=== PATIENT | male | born 1955 | race Caucasian/White ===

== ENCOUNTER 2024-03-31 16:05 | Inpatient (IN) ==
--- NOTE | 2024-03-31 16:38 | Emergency Department Note ---
Impression & Plan Anemia, Black stool, Right leg swelling ED Provider Note NAME: GUERO RAVI AGE: 68 SEX: M : 1955 ARRIVES VIA: Walk-In INFORMANT: [Patient][family] ED PROVIDER(S): [Yoel Wang MD] CHIEF COMPLAINT: GI bleed HISTORY OF PRESENT ILLNESS: The patient is a 68-year-old male who presents with advice from his doctor's office for a blood transfusion. The patient has had about a week and a half of an upset stomach and occasional dizziness. His lower right leg has swollen. He had some outpatient lab work done that showed a hemoglobin of 6.3. He was referred for a transfusion. There has been no fever, no cough or congestion. No chest pain or shortness of breath. The patient states that today, his stools were black in color. Of note, he has been taking iron the last few days. No history of previous GI bleeding or blood transfusion. PMHx/PSHx/Social Hx: See Below PHYSICAL EXAM: GENERAL: Patient is in no acute distress. HEENT: No acute trauma, normocephalic atraumatic, mucous membranes moist, no nasal congestion. NECK: No stridor, no adenopathy, no meningismus, trachea is midline. LUNGS: Clear to auscultation bilaterally, no wheeze, no rhonchi, breath sounds equal. HEART: 3/6 systolic murmur heard best at the left sternal border. Regular rate and rhythm. ABDOMEN: Soft, nontender, no peritonitis. EXTREMITIES: No cyanosis, full range of motion of all the joints without pain or difficulty. The patient does have some edema of the right lower extremity when compared to the left. There is some erythema with some subtle warmth of the distal left leg from the ankle to just below the knee. NEUROLOGIC: Oriented x 3, no acute motor or sensory deficits, no focal weakness. SKIN: No jaundice, no diaphoresis. Pale. Rectal: Black stool, very trace heme positivity. DIFFERENTIAL DIAGNOSIS: GI bleeding, marrow suppression, bacteremia, cellulitis, DVT, among others. EMERGENCY DEPARTMENT PROCEDURES: MEDICAL DECISION MAKING: There is no leukocytosis. The patient was anemic with a hemoglobin of 6.4. I did perform a rectal exam. The stool was black and very trace heme positive. There was a normal platelet count. No coagulopathy. No renal failure or significant electrolyte abnormality. No concerning liver enzyme elevation. The patient appeared to be in a euthyroid state. ECG showed a normal sinus rhythm, no acute ST elevation. Cardiac enzyme testing x 1 was not consistent with acute cardiac injury. Chest x-ray did not show pneumonia or CHF. On exam, the patient was quite pale. He did have right leg swelling. Rectal exam was trace heme positive but the stool was black. An ultrasound of the right lower extremity was done, no DVT, a hematoma/Fonseca's cyst was suggested. I did have a discussion with the patient. He does meet criteria for admission. Further workup for his anemia is warranted. The patient was ordered for blood for transfusion. 1 unit was ordered to be transfused here in the ED. The appropriate paperwork was completed and signed. I did speak with case management, the on-call hospitalist was consulted. Of note, the patient was given a dose of IV Protonix, 80 mg. This was given for the possibility of upper GI bleeding. Prior/Outside records/notes reviewed: None ECG per my interpretation: Indication was potential GI bleeding. The ECG shows a normal sinus rhythm with a rate of 61. There is no ST elevation, no PVCs. The QTc is 428. Continuous Cardiac Monitoring per my interpretation: An order was placed for continuous cardiac monitoring. The monitor shows a rate of 74 with normal sinus rhythm. Imaging/x-ray results per my interpretation: Chest x-ray does not show pneumonia or free air. There was no heart failure. Chronic Medical/Social conditions affecting care: None Care/Management discussed with: Case management, the on-call hospitalist. Level of care consideration(s): After review of the information above and other included data: --I believe the patient requires escalation of care to admission Critical Care Note: I have personally spent 45 minutes of critical care time in the direct management of this patient. This includes bedside care, interpretation of diagnostic studies, and testing, discussion with consultants, patient, and family members, and other required patient management activities. This 45 minutes is in excess of all separately billable procedures. 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 Beliefs That Will Affect Care: Shinto Shinto Beliefs: Amidh Current Living Situation: Spouse and Family Other Information That Helps Us Care for You: No Feels Safe at Home: Yes Assistive Devices: None Allergies Allergies Allergy/AdvReac Type Severity Reaction Status Date / Time No Known Allergies Allergy Unverified 03/31/24 18:35 Home Meds Home Medications Medication Instructions Recorded Confirmed iron 1 tab PO DIRECTED 03/31/24 03/31/24 Results & Data (ED) Vital Signs Vital Signs - 24 hr 03/31/24 16:07 03/31/24 16:41 Temperature 36.5 C Temperature Source Temporal Artery Scan Pulse Rate 74 63 Respiratory Rate 20 Respiratory Effort / Characteristics Non-Labored Spontaneous Respiratory Depth Normal Blood Pressure 125/60 Blood Pressure Mean 81 Pulse Oximetry 98 Oxygen Delivery Method Room Air Sepsis Recent Fever Within 48 Hours No Sepsis New/Unexplained Change in Mental Status No Sepsis Action Taken by Nursing No Action Required Home Medications Current Medication List: was personally reviewed by me Laboratory Data Attestation: I reviewed the patient's lab results. 03/31/24 18:37 03/31/24 16:32 Lab Results 03/31/24 03/31/24 Range/Units 16:32 17:03 WBC 7.76 (4.8-10.8) K/ul RBC 3.55 L (4.70-6.10) M/uL Hgb 6.4 L* (14.0-18.0) g/dl Hct 22.8 L (42.0-52.0) % MCV 64.2 L (80.0-100.0) fL MCH 18.0 L (25.0-34.0) pg MCHC 28.1 L (32.0-36.0) g/dL RDW Std Deviation 45.7 (36.4-46.3) fL RDW Coeff of Floresita 20.4 H (11.5-14.5) % Plt Count 312 (130-400) K/uL MPV 9.2 L (9.4-12.4) fL Immature Gran % (Auto) 0.4 % Neut % (Auto) 56.0 % Lymph % (Auto) 26.5 % Hardy % (Auto) 10.8 % Eos % (Auto) 5.4 % Baso % (Auto) 0.9 % Neut # (Auto) 4.34 (1.40-6.50) K/uL Lymph # (Auto) 2.06 (1.20-3.40) K/uL Hardy # (Auto) 0.84 H (0.11-0.59) K/uL Eos # (Auto) 0.42 (0.00-0.50) K/uL Baso # (Auto) 0.07 (0.00-0.20) K/uL Immature Gran # (Auto) 0.03 (0.01-0.20) K/uL Polychromasia 1+ Anisocytosis Present Tear Drop Cells 1+ PT 10.6 (9.0-12.0) Seconds INR 1.0 (0.9-1.1) APTT 22 (21-31) Seconds PTT Ratio 0.8 Sodium 138 (136-145) mmol/L Potassium 4.1 (3.5-5.1) mmol/L Chloride 105 (98-107) mmol/L Carbon Dioxide 26 (21-32) mmol/L Anion Gap 7 (3-11) BUN 18 (6-23) mg/dl Creatinine 0.88 (0.6-1.4) mg/dl Est Cr Clr Drug Dosing Not Reportable eGFR 93.08 BUN/Creatinine Ratio 20.5 H (10-20) Glucose 93 (70-99(Fasting)) mg/dl Lactate 1.2 (0.4-2.0) mmol/L Calcium 8.8 (8.6-10.3) mg/dl Magnesium 2.1 (1.7-2.4) mg/dl Iron 15 L (35-175) mcg/dl TIBC 435 (250-450) mcg/dl Unsaturated IBC 420 H (155-355) mcg/dl Transferrin % Sat 3 L (20-50) % Ferritin 39.6 (8-388) ng/ml Total Bilirubin 0.3 (0.2-1.0) mg/dl AST 21 (13-39) U/L ALT 15 (7-52) U/L Alkaline Phosphatase 74 (34-104) U/L Troponin I High Sens 12.2 (0-20) pg/ml Total Protein 7.4 (6.0-8.3) gm/dl Albumin 4.1 (3.4-5.0) gm/dl Globulin 3.3 (2.5-4.0) gm/dl Albumin/Globulin Ratio 1.2 (0.9-2) Vitamin B12 616 (180-914) pg/ml Folate 17.09 (>5.38) ng/ml TSH 2.116 (0.300-4.500) uIu/ml Blood Type A Positive Blood Type Recheck A Positive Antibody Screen NEGATIVE Crossmatch See Detail Administered Medications Pantoprazole Sodium (Protonix) 40 mg in 10 mls @ 5 mls/min IV BID AYAZ Stop: 04/30/24 20:59 Last Admin: 03/31/24 20:58 Dose: 5 mls/min Documented By: AMP Discontinued Medications Pantoprazole Sodium 80 mg/ (Dextrose) 120 mls @ 400 mls/hr IV NOW ONE Stop: 03/31/24 16:52 Last Infusion: 03/31/24 18:00 Dose: Infused Documented By: Admin: 03/31/24 17:56 Dose: 400 mls/hr Documented By: SRL Imaging Data Radiologist's Impression: Chest X-Ray 03/31/24 16:14 XR chest 1V portable CLINICAL HISTORY: weakness TECHNIQUE: Single frontal radiograph of the chest was obtained. Comparison: None available at the time of this dictation. FINDINGS: No lines and tubes are seen. Calcified aortic knob is seen. The lungs are clear. No evidence of pleural effusion or pneumothorax. IMPRESSION: No acute chest disease. ACT 112: Negative or not required by law. Electronically signed by: Hamzah El M.D. 03/31/2024 4:49 PM Venous Doppler Study 03/31/24 16:35 US venous doppler LE RT CLINICAL HISTORY: swollen TECHNIQUE: Right lower extremity real-time compression venous ultrasound with Color Doppler imaging. Utilizing real-time ultrasonic imaging multiple real time high-resolution ultrasonic images with compression and noncompression maneuvers of the deep venous system in addition to color doppler imaging were performed from the common femoral vein through the proximal calf veins. COMPARISON: None available at the time of this dictation. FINDINGS/IMPRESSION: No deep venous thrombus, there is normal compressibility of the deep venous system from the common femoral vein through the proximal calf veins. Complex collection about the patella measuring 9.9 x 7.3 x 7.8 cm is nonspecific and may represent a chronic hematoma or other fluid collection. A separate collection extends from the medial patella to the mid calf and may represent a ruptured Fonseca's cyst. ACT 112: Negative or not required by law. Electronically signed by: Hamzah El M.D. 03/31/2024 6:07 PM Discharge Plan Visit Data Chief Complaint: GI Bleed Stated Complaint: BLOOD TRANS DR REED ED Provider: Yoel Wang Discharge Problem: Anemia, Black stool, Right leg swelling Patient Disposition: Admitted As Inpatient Condition: Fair Discharge Instructions Interventions: ED Discharge Assessment Last Done: 03/31/24 20:14 Discharge Problem: Anemia Qualifiers: Anemia type: unspecified type Qualified Code(s): D64.9 - Anemia, unspecified
--- NOTE | 2024-03-31 16:51 | XRay Report ---
XR chest 1V portable CLINICAL HISTORY: weakness TECHNIQUE: Single frontal radiograph of the chest was obtained. Comparison: None available at the time of this dictation. FINDINGS: No lines and tubes are seen. Calcified aortic knob is seen. The lungs are clear. No evidence of pleur al effusion or pneumothorax. IMPRESSION: No acute chest disease. ACT 112: Negative or not required by law. Electronically signed by: Hamzah El M.D. 03/31/2024 4:49 PM
[2024-03-31 17:03] LABS: Hematocrit (blood only) 22.8 % (42.0-52.0); Hemoglobin 6.4 g/dl (14.0-18.0); Mean Corpuscular Hgb Conc 28.1 g/dL (32.0-36.0); Mean Corpuscular Volume 64.2 fL (80.0-100.0); Mean Platelet Volume 9.2 fL (9.4-12.4); Platelet Count 312 K/uL (130-400); RDW Coefficient of Variation 20.4 % (11.5-14.5); RDW Standard Deviation 45.7 fL (36.4-46.3); Red Blood Count 3.55 M/uL (4.70-6.10); White Blood Count 7.76 K/ul (4.8-10.8)
[2024-03-31 17:06] LABS: Alanine Aminotransferase 15 U/L (7-52); Albumin Globulin Ratio 1.2 (0.9-2); Albumin Level 4.1 gm/dl (3.4-5.0); Alkaline Phosphatase 74 U/L (34-104); Anion Gap 7 (3-11); Aspartate Aminotransferase 21 U/L (13-39); BUN Creatinine Ratio 20.5 (10-20); Bilirubin,Total 0.3 mg/dl (0.2-1.0); Blood Urea Nitrogen 18 mg/dl (6-23); Calcium 8.8 mg/dl (8.6-10.3); Carbon Dioxide 26 mmol/L (21-32); Chloride 105 mmol/L (98-107); Globulin 3.3 gm/dl (2.5-4.0); Glucose 93 mg/dl (70-99(Fasting)); Magnesium 2.1 mg/dl (1.7-2.4); Potassium 4.1 mmol/L (3.5-5.1); Sodium 138 mmol/L (136-145); Total Protein 7.4 gm/dl (6.0-8.3)
[2024-03-31 17:12] LABS: Anisocytosis Present; Basophils # (auto) 0.07 K/uL (0.00-0.20); Basophils % (auto) 0.9 %; Eosinophils # (auto) 0.42 K/uL (0.00-0.50); Eosinophils % (auto) 5.4 %; Immature Granulocytes # (auto) 0.03 K/uL (0.01-0.20); Immature Granulocytes % (auto) 0.4 %; Lymphocytes # (auto) 2.06 K/uL (1.20-3.40); Lymphocytes % (auto) 26.5 %; Monocytes # (auto) 0.84 K/uL (0.11-0.59); Monocytes % (auto) 10.8 %; Neutrophils # (auto) 4.34 K/uL (1.40-6.50); Polychromasia 1+; Tear Drop Cells 1+; Troponin I High Sensitivity 12.2 pg/ml (0-20)
[2024-03-31 17:21] LABS: Thyroid Stimulating Hormone 2.116 uIu/ml (0.300-4.500)
[2024-03-31 17:36] LABS: Partial Thromboplastin Ratio 0.8; Partial Thromboplastin Time 22 Seconds (21-31); Prothrombin Time 10.6 Seconds (9.0-12.0)
[2024-03-31] MEDS: PANTOprazole 80 MG in DEXTROSE 5% 100 ML IV ONE (17:56)
--- NOTE | 2024-03-31 18:08 | Ultrasound Report ---
US venous doppler LE RT CLINICAL HISTORY: swollen TECHNIQUE: Right lower extremity real-time compression venous ultrasound with Color Doppler imaging. Utilizing real-time ultrasonic imaging multiple real time high-resolution ultrasonic images with comp ression and noncompression maneuvers of the deep venous system in addition to color doppler imaging w ere performed from the common femoral vein through the proximal calf veins. COMPARISON: None available at the time of this dictation. FINDINGS/IMPRESSION: No deep venous thrombus, there is normal compressibility of the deep venous system from the common fe moral vein through the proximal calf veins. Complex collection about the patella measuring 9.9 x 7.3 x 7.8 cm is nonspecific and may represent a chronic hematoma or other fluid collection. A separate c ollection extends from the medial patella to the mid calf and may represent a ruptured Fonseca's cyst. ACT 112: Negative or not required by law. Electronically signed by: Hamzah El M.D. 03/31/2024 6:07 PM
[2024-03-31] MEDS ORDERED: SODIUM CHLORIDE 0.9% 250 ML IV PRN (18:12)
--- NOTE | 2024-03-31 18:28 | History & Physical Report ---
Date of Service March 31, 2024 Assessment & Plan (1) Upper GI bleed: Plan: Iron deficiency anemia,? Slow GI viewed further versus upper GI bleed Patient with black bowel movements x 1 day, is also been on oral iron supplementation Stool is weakly Hemoccult positive although not briskly so Hemoglobin is 6.4 on admission, MCV 64 consistent with severe microcytic anemia likely FRANCISCA Given that patient has a hemoglobin of 6.4, weakly positive occult blood, but is not tachycardic and is normotensive suspect that this represents a likely slow/chronic bleed Hemoglobin trended every 6 hours 1 unit ordered for transfusion, hemoglobin transfusion threshold 7.0. Signed consent on file Given melena patient was started on PPI. Will transition to twice daily dosing. BUN is not markedly elevated suggestive against an upper GI bleed No known history of colorectal cancer. Will need a colonoscopy once stable Iron panel pending. Would likely benefit from Venofer prior to discharge, will defer iron as same day as blood transfusion Patient is seen during a period of critical IV fluid shortage. Slow GI bleed without evidence of large-volume/acute hemorrhage. Continued on clears/water only. (2) Swelling of left knee joint: Plan: - Reports a week or so days of leg swelling and discomfort at the left knee, endorses he has some chronic intermittent pains in both knees which are "not too bad " No overlying warmth or erythema suggestive of cellulitis and there is no leukocytosis - US with no evidence of DVT. Fluid collections, one consistent with a Fonseca's cyst Trend leukocytosis daily. Antibiotics deferred.? Traumatic injury/ruptured cyst. Follow clinicallyneurovascularly intact Plan DVT prophylaxis: SCDs Diet: Clears, n.p.o. at midnight Disposition: Medical telemetry CODE STATUS: Full code History of Present Illness Primary Care Provider: NO PCP Phil is a 68-year-old [place] male who presented on referral from his PCP for a hemoglobin less than 7. Check extensive bedside. He reports that he has no medical problems, no medical history, no allergies, takes no medications. He reports he has had black bowel movements/melena of 1 day, bowel movements prior to yesterday were normal and brown. He has had some slightly upset stomach in the last week, otherwise he denies epigastric pain/tenderness. He uses aspirin as needed for discomfort/pain twice a week, otherwise denies NSAID and [id number] medication use. No family history of colorectal cancer, does have a history of heart disease in his father around age 46. Denies any other family history of medical problems. Has had some lightheadedness, no syncope Has had left knee/leg pain for over a week with some swelling. No history of blood clots. He has not had fevers chills or sweats. No known inciting injury Never received a blood transfusion, but is agreeable to a transfusion if needed. Has a history of discomfort and swelling in his left knee. He does not use tobacco products. Rare wine use without daily alcohol use. No recreational drug use No known medication allergies Full code Allergies Allergy/AdvReac Type Severity Reaction Status Date / Time No Known Allergies Allergy Unverified 03/31/24 18:35 Home Medications Medication Instructions Recorded Confirmed Type iron 1 tab PO DIRECTED 03/31/24 03/31/24 History Past Med/Surg History Problem List Swelling of left knee joint Upper GI bleed Social History Smoking Status: Never smoker Feels Safe at Home: Yes Physical Exam Physical Exam: General: A&Ox3. NAD. Cooperative. +pallor HEENT: Atraumatic, normocephalic. PERLAA. Pulm: CTAB A&P. -wheezes, -rales, -rhonchi. Symmetrical chest rise. No increased work of breathing. No respiratory distress. Cardiac: RRR, -mrg. Radial pulses intact and symmetrical. Abdominal: Trace epigastric TTP, nondistended, soft. BS present. Extremities: Bilateral left greater than right knee swelling, some tenderness to palpation of the posterior knee. Ankle dorsiflexion/plantarflexion 5/5 bilaterally. No calf tenderness. No demarcated erythema Results & Data Results & Data Vital Signs (Past 12 Hours) Vital Signs Temp Pulse Resp BP Pulse Ox O2 Del Method 03/31/24 16:41 63 03/31/24 16:07 36.5 C 74 20 125/60 98 Room Air PG Care Time/CCT Total # of Minutes Spent Total Time Spent with Patient: Total time spent is greater than 50% in coordination of care (as documented) at patient's floor/unit and/or counseling patient: Coding Level of Care Code 62972 INT INP/OBS CARE 75MIN Diagnoses Upper GI bleed K92.2 Swelling of left knee joint M25.462
[2024-03-31 19:01] LABS: Iron 15 mcg/dl (35-175); Total Iron Binding Cap Calc 435 mcg/dl (250-450); Transferrin (FE) Percent Satur 3 % (20-50); Unsaturated Iron Binding Cap 420 mcg/dl (155-355)
[2024-03-31 19:02] LABS: Hematocrit (blood only) 23.1 % (42.0-52.0); Hemoglobin 6.4 g/dl (14.0-18.0)
[2024-03-31 19:19] LABS: Ferritin 39.6 ng/ml (8-388)
[2024-03-31 19:36] LABS: Folate (Folic Acid),Ser orPlas 17.09 ng/ml (>5.38)
[2024-03-31] MEDS: PANTOprazole 40 MG/10 ML SYR IV SCH (20:58)
[2024-04-01 07:16] LABS: Calcium 8.8 mg/dl (8.6-10.3); Creatinine Clr Calc Pharmacy 87.2 ml/min; Potassium 4.1 mmol/L (3.5-5.1)
[2024-04-01 07:28] LABS: Hematocrit (blood only) 28.6 % (42.0-52.0); Hemoglobin 7.7 g/dl (14.0-18.0); Mean Corpuscular Hemoglobin 18.8 pg (25.0-34.0); Mean Corpuscular Hgb Conc 26.9 g/dL (32.0-36.0); Mean Corpuscular Volume 69.9 fL (80.0-100.0); Mean Platelet Volume 9.6 fL (9.4-12.4); Platelet Count 279 K/uL (130-400); RDW Coefficient of Variation 22.9 % (11.5-14.5); Red Blood Count 4.09 M/uL (4.70-6.10)
[2024-04-01 07:55] LABS: Anisocytosis Present; Basophils # (auto) 0.09 K/uL (0.00-0.20); Basophils % (auto) 1.2 %; Eosinophils # (auto) 0.54 K/uL (0.00-0.50); Immature Granulocytes # (auto) 0.05 K/uL (0.01-0.20); Immature Granulocytes % (auto) 0.6 %; Lymphocytes # (auto) 1.64 K/uL (1.20-3.40); Lymphocytes % (auto) 21.3 %; Microcytosis Present; Monocytes # (auto) 0.83 K/uL (0.11-0.59); Monocytes % (auto) 10.8 %; Neutrophils # (auto) 4.55 K/uL (1.40-6.50); Neutrophils % (auto) 59.1 %; Ovalocytes 1+; Polychromasia 1+; Tear Drop Cells 1+
[2024-04-01] MEDS: PANTOprazole 40 MG TAB PO SCH (09:22)
[2024-04-01] MEDS: IRON SUCROSE 400 MG in SODIUM CHLORIDE 0.9% 250 ML IV ONE (09:22)
--- NOTE | 2024-04-01 09:32 | Electrocardiogram Report ---
Test Reason : Blood Pressure : */* mmHG Vent. Rate : 61 BPM Atrial Rate : 61 BPM P-R Int : 182 ms QRS Dur : 102 ms QT Int : 426 ms P-R-T Axes : -7 52 38 degrees QTcB Int : 428 ms Normal sinus rhythm Normal ECG No previous ECGs available Confirmed by Enrrique Junior ([id number]) on 04/01/2024 9:32:21 AM Referred By: NO PCP Confirmed By: Enrrique Junior
--- NOTE | 2024-04-01 10:49 | Hospitalist Progress Note ---
Date of Service April 01, 2024 Assessment & Plan (1) Upper GI bleed: Plan: Suspected. Hemoccult positive in the ED. Recent onset of melena but he also started taking oral iron supplements. No gross hematochezia. Admission hemoglobin 6.4. He received 1 unit packed red blood cells and hemoglobin improved to 7.7. Will repeat H&H again this afternoon. GI consult requested and pending. (2) Swelling of left knee joint: Plan: Venous Doppler negative for DVT. He may have a ruptured Fonseca's cyst. This will need further outpatient follow-up. (3) Iron deficiency: Plan: Parenteral iron replacement started today, April 01. Plan If gastroenterology recommends outpatient follow-up and outpatient endoscopy, will discharge this patient later today, April 01 Admission and Anticipated Discharge Date Admission Date: March 31, 2024 Subjective Alert and oriented. No complaints. is at the bedside. Hemoglobin improved from 6.4 up to 7.7 with 1 unit packed red blood cells. He is receiving iron infusion at this time for his iron deficiency. He denies any previous known history of peptic ulcer disease but does admit to some epigastric discomfort. He probably would benefit from an EGD at some point. Gastroenterology consultation requested and pending. Will recheck hemoglobin level this afternoon. Protonix drip switched to oral Protonix dosing. If gastroenterology recommends outpatient endoscopy, will discharge later today. Review of Systems 2 Review of Systems: Constitutionalno fever or chills ENTno blurred vision, no double vision, no epistaxis, no sore throat Respiratoryno cough, no wheezing, no shortness of breath Cardiacno palpitations, no chest pain, no syncope John nausea, vomiting, diarrhea. No gross hematochezia. Melena recently started although he recently started oral iron replacement also. Epigastric discomfort GUno urinary retention, no urinary incontinence, no dysuria, no hematuria Musculoskeletalno joint pain, no muscle tenderness Skinno bruising, no rashes, no pruritus Neurono isolated weakness, no paresthesia Psychno depression, no anxiety Physical Exam 2 Physical Exam: General-alert and oriented x3, no fever, no chills HEENT-head atraumatic and normocephalic, pupils equal and reactive to light, extraocular muscles intact Neck-no lymphadenopathy or thyromegaly, trachea midline Chest-clear to auscultation. No rales, wheezing or rhonchi Cardiac-regular rate and rhythm, normal S1 and S2 Abdomen-normal bowel sounds, no hepatosplenomegaly. Mild epigastric discomfort to palpation. No rebound or guarding. No masses Extremities-no cyanosis, clubbing, or edema Neuro-cranial nerves II through XII intact, motor and sensory function within normal limits, strength symmetrical, no focal deficits Psych-normal affect, normal mood Results & Data Results & Data Vital Signs (Past 12 Hours) Vital Signs Temp Pulse Pulse Resp BP Pulse Ox O2 Del Method 04/01/24 09:27 36.4 C L 64 18 117/59 L 99 Room Air 04/01/24 07:18 36.4 C L 57 L 17 124/72 98 Room Air 04/01/24 02:27 36.7 C 61 18 136/70 96 Room Air 03/31/24 22:56 36.8 C 60 18 159/68 H 99 Room Air 03/31/24 22:49 59 L Laboratory Results 04/01/24 06:37 04/01/24 06:37 PG Care Time/CCT Total # of Minutes Spent Total Time Spent with Patient: Total time spent is greater than 50% in coordination of care (as documented) at patient's floor/unit and/or counseling patient: Coding Level of Care Code 54449 SUB INP/OBS CARE 3/50MIN Diagnoses Upper GI bleed K92.2 Swelling of left knee joint M25.462 Iron deficiency E61.1
--- NOTE | 2024-04-01 11:07 | Gastrointestinal Consultation ---
<Statement entered by Zafar Hurley MD - 04/01/24 12:56> I personally saw and examined the patient. I have reviewed the chart and agree with the documentation provided by the CORE INSERTER including discussion about the assessment, treatment and plan. Briefly, 68 year old male without past medical history who was admitted with abnormal labs - HGB 6.4. GI was asked to evaluate for suspected UGI bleeding. Pt was seen and evaluated, chart reviewed. Family at bedside who aids in history. He suggests for the last few months he has had generalized GI upset. Ferritin 3% and low iron. Sister with colon cancer in 60s. I went over risk and benefits. Pt agrees to do egd and colonoscopy in am. NPO p mn. Colyte or golytely. Date of Consultation April 01, 2024 Assessment & Plan (1) Iron deficiency: 68 year old male without past medical history who was admitted with abnormal labs showing FRANCISCA w/ HGB 6.4. He reports generalized GI upset for a few months without change in bowel habits, nausea/vomiting. Sister had colon cancer in her early 60's. - Recommended EGD/Colonoscopy 04/02 - He is not sure how he would like to proceed - He will discuss this with his and let us know on afternoon rounds - If he is not agreeable to evaluation on 04/02 he will need expedited outpat ient evaluation to be arranged within 1-2 weeks - Agree w/ IV iron supplementation - Trend HGB - Monitor and document GI output - Transfuse PRN per primary team - PO PPI once daily - Consider abdominal imaging given report of vague abdominal discomfort for months Thank you for allowing us to participate in the care of this patient. Please call with any acute changes, questions or concerns. Please see addendum below with additional recommendation from my supervising physician. I spent a total of 45 minutes on the date of service in review of patient's record, and previously obtained information in person and appropriate medical visit, discussion and education of plan, with patient and/or caregiver, placing orders for tests/referral/procedures as medically necessary and documentation of pertinent clinical information in patient's medical records for their visit today. History of Present Illness Reason for Consultation: suspected UGI bleeding Requesting Physician: Abner Al MD Attending Physician: Abner Al MD History of Present Illness 68 year old male without past medical history who was admitted with abnormal labs - HGB 6.4. GI was asked to evaluate for suspected UGI bleeding. Pt was seen and evaluated, chart reviewed. Family at bedside who aids in history. He suggests for the last few months he has had generalized GI upset. He reports an uncomfortable feeling in his mid abdomen. He is unsure how to explain this. Denies associated nausea/vomiting with the discomfort. Denies reflux/regurgitation. Reports a good appetite. Suggests his stools have been moving regularly. No diarrhea/constipation. Suggests saw PCP and was told he was anemic and was started on iron supplementation. Since starting iron supplementation - stools have become black. No weight loss. No fever, chills, CP, SOB. HGB 6.4 --> 1 unit --> HGB 7.7 BUN 16 MCV 64 Iron 15 Ferritin 39 Trans sat 3% No NSAIDs No tobacco No ETOH No EGD No colonoscopy No abdominal imaging Sister had colon cancer in her early 60's Allergies Allergy/AdvReac Type Severity Reaction Status Date / Time No Known Allergies Allergy Unverified 03/31/24 18:35 Home Medications Medication Instructions Recorded Confirmed Type iron 1 tab PO DIRECTED 03/31/24 03/31/24 History Patient History Medical History Anemia Social History Smoking Status: Never smoker Second Hand Exposure: No; Do You Dip or Chew Tobacco: No; Tobacco Cessation Education Requested by Patient: No Hx Alcohol Use: No Hx Substance Use: No Preferred Language: Japanese Communication Ability: Effective Insurance Coordinator Required: No Beliefs That Will Affect Care: Anabaptism Anabaptism Beliefs: Amidh Current Living Situation: Spouse and Family Other Information That Helps Us Care for You: No Feels Safe at Home: Yes Assistive Devices: None Review of Systems Review of Systems: All other findings negative except as noted in HPI. Physical Exam Constitutional: WD/WN, vitals as above Respiratory: normal respiratory effort Cardiovascular: Rate/Rhythm: regular rate and regular rhythm Gastrointestinal (Abdomen): normal bowel sounds, soft, nontender, no hepatosplenomegaly Skin: no rashes, warm and dry Results & Data Vital Signs (Past 12 Hours) Vital Signs Temp Pulse Resp BP Pulse Ox O2 Del Method 04/01/24 09:27 36.4 C L 64 18 117/59 L 99 Room Air 04/01/24 07:18 36.4 C L 57 L 17 124/72 98 Room Air 04/01/24 02:27 36.7 C 61 18 136/70 96 Room Air 03/31/24 22:56 36.8 C 60 18 159/68 H 99 Room Air PG Care Time/CCT Total # of Minutes Spent Total Time Spent with Patient: Total time spent is greater than 50% in coordination of care (as documented) at patient's floor/unit and/or counseling patient: Coding Level of Care Code 70068 IN/OBS CONSULT LVL 3,45M Diagnoses Iron deficiency E61.1
[2024-04-01] MEDS: LAVAGE SOLUTION 4000ML PO SCH (12:33)
--- NOTE | 2024-04-01 15:09 | Orthopedic Consultation ---
Date of Service April 01, 2024 Assessment & Plan (1) Right leg swelling: He was seen and examined by Dr. Baker today. 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 He may have a ruptured bakers cyst contributing to the edema in the right leg. This will resolve over time, and may take several weeks. We offered to aspirate his knee and get an xray but he declined any further management at this time. No further orthopedic intervention needed. If he changes his mind please tiger/call us. History of Present Illness Reason for Consultation: . Requesting Physician: . Attending Physician: Abner Al MD . 68 year old patient admitted for anemia/suspected GI bleed, scheduled for EGD/colonscopy tomorrow. He has some swelling of his right leg and ultrasound shows a fluid collection possibly representing a ruptured bakers cyst. We were consulted for further evaluation. He has a history of some knee pain in the past, no past knee surgery. Allergies Allergy/AdvReac Type Severity Reaction Status Date / Time No Known Allergies Allergy Unverified 03/31/24 18:35 Home Medications Medication Instructions Recorded Confirmed Type iron 1 tab PO DIRECTED 03/31/24 03/31/24 History Past Med/Surg History Problem List Iron deficiency Right leg swelling (Acute) Black stool (Acute) Anemia (Acute) Swelling of left knee joint Upper GI bleed Medical History Anemia Social History Smoking Status: Never smoker Second Hand Exposure: No; Do You Dip or Chew Tobacco: No; Tobacco Cessation Education Requested by Patient: No Hx Alcohol Use: No Hx Substance Use: No Preferred Language: [place] Citizen Communication Ability: Effective Acoustics Teacher Required: No Beliefs That Will Affect Care: Islam Islam Beliefs: Amidh Current Living Situation: Spouse and Family Other Information That Helps Us Care for You: No Feels Safe at Home: Yes Assistive Devices: None Review of Systems All systems reviewed & are unremarkable except as noted in HPI & below. Physical Exam . alert and oriented. NAD Right leg: +knee effusion and edema of his lower leg into the foot. He can do a straight leg raise. No redness or warmth to his knee. No pain with knee range of motion. He does have a left knee effusion as well. Results & Data Results & Data Laboratory Results . Diagnostic Findings .ultrasound report reviewed: No deep venous thrombus, there is normal compressibility of the deep venous system from the common femoral vein through the proximal calf veins. Complex collection about the patella measuring 9.9 x 7.3 x 7.8 cm is nonspecific and may represent a chronic hematoma or other fluid collection. A separate collection extends from the medial patella to the mid calf and may represent a ruptured Fonseca's cyst. PG Care Time/CCT Total # of Minutes Spent Total Time Spent with Patient: Total time spent is greater than 50% in coordination of care (as documented) at patient's floor/unit and/or counseling patient: Coding Level of Care Code 97251 IN/OBS CONSULT LVL 3,45M Diagnoses Right leg swelling M79.89
[2024-04-01 17:51] LABS: Hematocrit (blood only) 24.8 % (42.0-52.0); Hemoglobin 7.1 g/dl (14.0-18.0)
[2024-04-02 07:34] LABS: Basophils # (auto) 0.08 K/uL (0.00-0.20); Basophils % (auto) 1.3 %; Eosinophils # (auto) 0.34 K/uL (0.00-0.50); Eosinophils % (auto) 5.3 %; Hematocrit (blood only) 25.9 % (42.0-52.0); Hemoglobin 7.6 g/dl (14.0-18.0); Immature Granulocytes # (auto) 0.02 K/uL (0.01-0.20); Immature Granulocytes % (auto) 0.3 %; Lymphocytes # (auto) 1.58 K/uL (1.20-3.40); Lymphocytes % (auto) 24.7 %; Mean Corpuscular Hemoglobin 19.5 pg (25.0-34.0); Mean Corpuscular Hgb Conc 29.3 g/dL (32.0-36.0); Mean Corpuscular Volume 66.6 fL (80.0-100.0); Monocytes # (auto) 0.82 K/uL (0.11-0.59); Monocytes % (auto) 12.8 %; Neutrophils # (auto) 3.56 K/uL (1.40-6.50); Neutrophils % (auto) 55.6 %; RDW Coefficient of Variation 23.8 % (11.5-14.5); RDW Standard Deviation 49.9 fL (36.4-46.3); Red Blood Count 3.89 M/uL (4.70-6.10)
[2024-04-02 07:49] LABS: Mean Platelet Volume 8.8 fL (9.4-12.4); Platelet Count 290 K/uL (130-400)
[2024-04-02 07:59] LABS: Calcium 8.7 mg/dl (8.6-10.3); Creatinine Clr Calc Pharmacy 91.6 ml/min; Potassium 3.8 mmol/L (3.5-5.1)
[2024-04-02 08:01] LABS: Hypochromasia Present; Microcytosis Present; Ovalocytes 1+; Polychromasia 1+; Tear Drop Cells 1+
[2024-04-02] MEDS ORDERED: SIMETHICONE (ENDO) IR PRN (08:31)
--- NOTE | 2024-04-02 08:31 | History & Physical Bridge Note ---
Date of Service April 02, 2024 History & Physical Bridge Note I have examined the patient, reviewed the History & Physical and in the interval since the performance of the History & Physical I have noted the following changes of clinical significance: no changes noted. severe fe def anemia and fh of crc. Plan for egco today.
--- NOTE | 2024-04-02 09:14 | Anesthesiology Consultation ---
Date of Service April 02, 2024 Assessment & Plan Chart Review Chart Review: Acceptable Risk for Surgery, Patient NOT seen in Pre Admission Testing and entry level sales consultant initiated Consults Requested none Proposed Anesthesia Anesthesia Type: MAC History Surgery Operation Date: 04/02/24 16:30 Proposed Procedures p Colonoscopy EGD Xavi Hurley MD Height/Weight Height: 6 ft Weight: 74.3 kg Allergies Allergy/AdvReac Type Severity Reaction Status Date / Time No Known Allergies Allergy Unverified 03/31/24 18:35 Medications Home Medications Medication Instructions Recorded Confirmed Last Taken iron 1 tab PO DIRECTED 03/31/24 03/31/24 Unknown Active Medications Generic Name Dose Route Start Last Admin Trade Name Freq PRN Reason Stop Dose Admin Pantoprazole Sodium 40 mg 04/01/24 09:00 04/01/24 21:12 Pantoprazole 40 Mg Tab PO 05/01/24 08:59 40 mg BID AYAZ Administration Polyethylene Glycol/Electrolytes 16 dose 04/01/24 12:00 04/01/24 12:33 Lavage Solution 4000ml PO 05/01/24 11:59 16 dose TODAY@1200 AYAZ Administration NPO Date Last Intake of Fluids: 04/01/24 Time Last Intake of Fluids: 23:59 Date Last Intake of Solids: 04/01/24 Time Last Intake of Solids: 12:00 Past Medical History Medical History Anemia Social History Smoking Status: Never smoker Do You Dip or Chew Tobacco: No Hx Alcohol Use: No Hx Substance Use: No Physical Exam Vital Signs Last Vital Signs Temp 36.9 C 04/02/24 07:30 Pulse 54 L 04/02/24 09:02 Resp 17 04/02/24 07:30 BP 130/76 04/02/24 07:30 Pulse Ox 98 04/02/24 07:30 O2 Del Method Room Air 04/02/24 07:30 O2 Flow Rate 0 03/31/24 19:43 Testing Laboratory Results 04/02/24 07:05 04/02/24 07:05 PT 10.6 Seconds (9.0-12.0) 03/31/24 16:32 INR 1.0 (0.9-1.1) 03/31/24 16:32 APTT 22 Seconds (21-31) 03/31/24 16:32 Blood Type A Positive 03/31/24 16:32 Antibody Screen NEGATIVE 03/31/24 16:32 03/31/24 17:03 Aerobic Blood Culture - Preliminary Blood No growth in Aerobic bottle after 24 hours. Anaerobic Blood Culture - Preliminary No growth in Anaerobic bottle after 24 hours. Electrocardiogram Date: 03/31/24 Test Reason : Blood Pressure : */* mmHG Vent. Rate : 61 BPM Atrial Rate : 61 BPM P-R Int : 182 ms QRS Dur : 102 ms QT Int : 426 ms P-R-T Axes : -7 52 38 degrees QTcB Int : 428 ms Normal sinus rhythm Normal ECG No previous ECGs available Confirmed by Enrrique Junior ([id number]) on 04/01/2024 9:32:21 AM Chest X-Ray Date: 03/31/24 XR chest 1V portable CLINICAL HISTORY: weakness TECHNIQUE: Single frontal radiograph of the chest was obtained. Comparison: None available at the time of this dictation. FINDINGS: No lines and tubes are seen. Calcified aortic knob is seen. The lungs are clear. No evidence of pleural effusion or pneumothorax. IMPRESSION: No acute chest disease.
[2024-04-02] MEDS: SODIUM CHLORIDE 0.9% 500 ML IV SCH (09:32)
--- NOTE | 2024-04-02 10:03 | GI REPORT ---
[facility] Patient: GUERO RAVI : 1955 Sex at : Male Age: 68 Years Procedure: Colonoscopy Date: 04/02/2024 Attending Physician: Zafar Hurley MD Referring MD: No Pcp Indications: - Screening for colorectal malignant neoplasm Medications: - Monitored Anesthesia Care Complications: - No immediate complications. Estimated Blood Loss: - Estimated blood loss: None. Procedure: - Prior to the procedure, a History and Physical was performed, and patient medications and allergies were reviewed. The patient's tolerance of previous anesthesia was also reviewed. The risks and benefits of the procedure and the sedation options and risks were discussed with the patient. All questions were answered, and informed consent was obtained. Prior Anticoagulants: The patient has taken no anticoagulant or antiplatelet agents. ASA Grade Assessment: II - A patient with mild systemic disease. After reviewing the risks and benefits, the patient was deemed in satisfactory condition to undergo the procedure. - The pediatric colonoscope was introduced through the anus and advanced to the terminal ileum, with identification of the appendiceal orifice and ileocecal valve. - The colonoscopy was performed without difficulty. - The patient tolerated the procedure well. - The quality of the bowel preparation was good. - The ileocecal valve, appendiceal orifice, and rectum were photographed. Findings: - The terminal ileum appeared normal. - The exam was otherwise without abnormality on direct and retroflexion views. - Multiple small-mouthed diverticula were found in the sigmoid colon. There was no evidence of diverticular bleeding. - Internal hemorrhoids were found during retroflexion. The hemorrhoids were Grade I (internal hemorrhoids that do not prolapse). Impression: - The examined portion of the ileum was normal. - The examination was otherwise normal on direct and retroflexion views. - Mild diverticulosis in the sigmoid colon. There was no evidence of diverticular bleeding. - Internal hemorrhoids. - No specimens collected. Recommendation: - Discharge patient to home (ambulatory). - Resume previous diet. - Continue present medications. - Return to referring physician as previously scheduled. - Patient has a contact number available for emergencies. The signs and symptoms of potential delayed complications were discussed with the patient. Return to normal activities tomorrow. Written discharge instructions were provided to the patient. - No repeat colonoscopy due to age. Procedure Code(s): - G0121, Colorectal cancer screening; colonoscopy on individual not meeting criteria for high risk Diagnosis Code(s): - Z12.11, Encounter for screening for malignant neoplasm of colon - K64.0, First degree hemorrhoids - K57.30, Diverticulosis of large intestine without perforation or abscess without bleeding CPT(R) - 2023 copyright [employer]. All Rights Reserved. The CPT codes, CCI edits and ICD codes generated are intended as suggestions and were generated based on input data. These codes are preliminary and upon beader tender review may be revised to meet current compliance and payer requirements. The provider is responsible for the final determination of appropriate codes, and modifiers. Zafar Hurley MD This document has been electronically signed. Note Initiated:04/02/2024 Note Completed:04/02/2024 10:02 AM \\[email or web address]\Provation\Results\LIVE\[id number].pdf
--- NOTE | 2024-04-02 10:05 | GI REPORT ---
[facility] Patient: GUERO RAVI : 1955 Sex at : Male Age: 68 Years Procedure: Upper GI endoscopy Date: 04/02/2024 Attending Physician: Zafar Hurley MD Referring MD: No Pcp Indications: - Iron deficiency anemia Medications: - Monitored Anesthesia Care Complications: - No immediate complications. Estimated Blood Loss: - Estimated blood loss: None. Procedure: - ASA Grade Assessment: II - A patient with mild systemic disease. - Prior to the procedure, a History and Physical was performed, and patient medications and allergies were reviewed. The patient's tolerance of previous anesthesia was also reviewed. The risks and benefits of the procedure and the sedation options and risks were discussed with the patient. All questions were answered, and informed consent was obtained. Prior Anticoagulants: The patient has taken no anticoagulant or antiplatelet agents. ASA Grade Assessment: II - A patient with mild systemic disease. After reviewing the risks and benefits, the patient was deemed in satisfactory condition to undergo the procedure. - The pediatric colonoscope was introduced through the mouth and advanced to the third part of the duodenum. - The upper GI endoscopy was accomplished without difficulty. - The patient tolerated the procedure well. Findings: - A small hiatal hernia was present. - LA Grade B (one or more mucosal breaks greater than 5 mm, not extending between the tops of two mucosal folds) esophagitis with no bleeding was found at the gastroesophageal junction (on retroflexion). Biopsies were taken with a cold forceps for histology. Estimated blood loss was minimal. - The cardia and gastric fundus were normal on retroflexion. - The examined duodenum was normal. Impression: - Small hiatal hernia. - LA Grade B reflux esophagitis with no bleeding. Rule out Vela's esophagus. Biopsied. - Normal examined duodenum. Recommendation: - Discharge patient to home (ambulatory). - Resume previous diet. - Continue present medications. - Await pathology results. - Return to primary care physician as previously scheduled. - Patient has a contact number available for emergencies. The signs and symptoms of potential delayed complications were discussed with the patient. Return to normal activities tomorrow. Written discharge instructions were provided to the patient. Procedure Code(s): - 82100, Esophagogastroduodenoscopy, flexible, transoral; with biopsy, single or multiple Diagnosis Code(s): - D50.9, Iron deficiency anemia, unspecified - K44.9, Diaphragmatic hernia without obstruction or gangrene - K21.00, Gastro-esophageal reflux disease with esophagitis, without bleeding CPT(R) - 2023 copyright [employer]. All Rights Reserved. The CPT codes, CCI edits and ICD codes generated are intended as suggestions and were generated based on input data. These codes are preliminary and upon adult live in caregiver review may be revised to meet current compliance and payer requirements. The provider is responsible for the final determination of appropriate codes, and modifiers. Zafar Hurley MD This document has been electronically signed. Note Initiated:04/02/2024 Note Completed:04/02/2024 10:04 AM \\[email or web address]\Data\Provation\Results\LIVE\[id number]
[2024-04-02] MEDS: PROPOFOL IV EMULSION 10 MG/ML 20 ML VIAL IV ONE ×3 (10:46→10:47)
[2024-04-02] MEDS: IRON SUCROSE 200 MG in SODIUM CHLORIDE 0.9% 100 ML IV ONE (10:46)
[2024-04-02] MEDS: LIDOCAINE 2% 2 ML VIAL/AMP(20MG/ML) INFIL ONE ×3 (10:46)
--- NOTE | 2024-04-02 10:46 | Anesthesiology Progress Note ---
Date of Service April 02, 2024 Anesthesia Post Procedure Vital Signs Vital Signs: Temp Pulse Pulse Resp BP Pulse Ox O2 Del Method 04/02/24 10:34 54 L 16 111/74 98 Room Air 04/02/24 10:19 58 L 16 109/51 L 97 Room Air 04/02/24 10:04 57 L 16 87/40 L 99 Room Air 04/02/24 09:02 54 L 04/02/24 07:30 36.9 C 53 L 17 130/76 98 Room Air 04/02/24 03:00 37 C 60 18 124/76 97 Room Air 04/01/24 23:14 36.5 C 58 L 12 126/73 95 Room Air 04/01/24 23:00 62 04/01/24 19:24 36.3 C L 55 L 14 146/76 H 97 Room Air 04/01/24 14:14 36.4 C L 54 L 16 134/73 97 Room Air 04/01/24 11:40 53 L Transfer of Care Handoff Completed per policy Notes Mental Status: alert / awake / arousable and participated in evaluation Patient Amnestic to Procedure: Yes Nausea / Vomiting: adequately controlled Pain: adequately controlled Airway Patency, RR, SpO2: stable & adequate BP & HR: stable & adequate Hydration State: stable & adequate Anesthetic Complications: no major complications apparent
[2024-04-02 11:02] VITALS: TEMP 97.3; O2SAT 100
--- NOTE | 2024-04-02 11:12 | Discharge Summary ---
Discharge Summary Date of Service April 02, 2024 Principal Dx & Hospital Course #1 = Principal Diagnosis (1) Upper GI bleed: Suspected. Hemoccult positive in the ED. Recent onset of melena but he also started taking oral iron supplements. No gross hematochezia. Admission hemoglobin 6.4. He received 1 unit packed red blood cells and hemoglobin improved to 7.7 and remained stable. GI consult appreciated. He underwent EGD and colonoscopy earlier this morning, April 02. There is evidence of esophagitis from acid reflux. Colonoscopy was unremarkable for age. He will remain on Prilosec for 6 weeks and take Carafate suspension for 2 weeks. He will also take iron supplements for at least a month (2) Swelling of left knee joint: Venous Doppler negative for DVT. Orthopedic consultation and recommendations appreciated. No indication for aspiration at this time. He will follow-up with orthopedics as an outpatient. (3) Iron deficiency: Parenteral iron replacement administered while hospitalized. He will continue ferrous sulfate 325 mg twice daily at discharge. Plan Home today, April 02 Admission HPI Per Admitting Provider Phil is a 68-year-old [facility] male who presented on referral from his PCP for a hemoglobin less than 7. Check extensive bedside. He reports that he has no medical problems, no medical history, no allergies, takes no medications. He reports he has had black bowel movements/melena of 1 day, bowel movements prior to yesterday were normal and brown. He has had some slightly upset stomach in the last week, otherwise he denies epigastric pain/tenderness. He uses aspirin as needed for discomfort/pain twice a week, otherwise denies NSAID and [id number] medication use. No family history of colorectal cancer, does have a history of heart disease in his father around age 46. Denies any other family history of medical problems. Has had some lightheadedness, no syncope Has had left knee/leg pain for over a week with some swelling. No history of blood clots. He has not had fevers chills or sweats. No known inciting injury Never received a blood transfusion, but is agreeable to a transfusion if needed. Has a history of discomfort and swelling in his left knee. He does not use tobacco products. Rare wine use without daily alcohol use. No recreational drug use No known medication allergies Full code Discharge Exam General-alert and oriented x3, no fever, no chills HEENT-head atraumatic and normocephalic, pupils equal and reactive to light, extraocular muscles intact Neck-no lymphadenopathy or thyromegaly, trachea midline Chest-clear to auscultation. No rales, wheezing or rhonchi Cardiac-regular rate and rhythm, normal S1 and S2 Abdomen-normal bowel sounds, no hepatosplenomegaly. Mild epigastric discomfort to palpation. No rebound or guarding. No masses Extremities-no cyanosis, clubbing, or edema Neuro-cranial nerves II through XII intact, motor and sensory function within normal limits, strength symmetrical, no focal deficits Psych-normal affect, normal mood Discharge Plan Discharge Items Patient Disposition: Home - Self-Care Reason For Visit: ANEMIA Discharge Diagnosis: Reflux esophagitis, GERD, upper GI bleed, iron deficiency anemia, right knee effusion Condition on Discharge: Good Activity: Resume your previous activity Non-emergency contact: Primary Care Provider Call non-emergency contact if: your symptoms worsen Follow-up/Referrals: PCP,NO [Primary Care Provider] - Diet: Regular Addtl Attending Provider Instructions: Take omeprazole once daily for 6 weeks to suppress stomach acid. Use sucralfate suspension 3-4 times a day on an empty stomach for 2 weeks to heal the esophagitis. Take ferrous sulfate iron supplement twice daily until further notice. All prescriptions have been sent to the [facility] Pending Studies at Discharge: No Stand-Alone Forms: [facility], Smoking Cessation Medications and DC Order Prescriptions: New omeprazole 40 mg capsule,delayed release(DR/EC) 40 mg PO DAILY Qty: 40 0RF sucralfate 100 mg/mL suspension 1 g PO ACHS Qty: 500 0RF ferrous sulfate 325 mg (65 mg iron) tablet 325 mg PO BID Qty: 60 0RF Discontinued iron 1 tab PO DIRECTED Discharge Orders: Discharge Order (Routine); Ordered 04/02/24 Ordered By: Abner Al Admission Data Admit Date/Time: 03/31/24 18:33 Attending Provider: Abner Al Admit Provider: Milan Tabor Primary Care Provider: PCP,NO Other Providers: Milan Tabor; Jonathon Springer; Rex Canas; Yola Enrique; Andria Alvarenga; Lona Vasquez; Anjana Alejandro; Kirstie Frank; Waylon Candelario; David Haley; Sarahi Drew; Jayme Tucker; Ash Sorensen; Shelia Merino; Haley Lewis; Marina Osborne; Melanie Alexander; Betty Leonard; Hollis Villagomez; Estrellita Brown; Teri Selby Jr; Palmer Milan; Zackary Roberts; Zafar Hurley; Hasmukh Villalta; Brisa Cline; Konstantin Norwood I; Kalpana Jesus; Grover Kim; Nataliia Coreas; Mindy Juárez; Samantha Gottlieb; Taiwo Mejia; Pamella Gary; Vahe Baker; Keren Steve; Jose Luis Sanabria; Eran Tucker; Estrellita James; Eran Granados; Dale Solo.; Yoel Smith; Ruma Viveros Other Interventions: Discharge Summary Assessment (RN) Last Done: 04/02/24 10:19 Hospital Stay Data Consultations 03/31/24 18:25 ED Decision to Admit Stat 04/01/24 10:33 Consult Gastroenterology Routine 04/01/24 12:31 Consult Orthopedic Surgery Routine Procedures Performed Operation Date: 04/02/24 16:30 Actual Procedures p Colonoscopy - Zafar Hurley MD s EGD Biopsy Cytology - Zafar Hurley MD Diagnostic Imagining Performed 03/31/24 16:35 US venous doppler LE RT Stat Pending Results Patient Have Any Pending Studies at Discharge: No Discharge Instructions Given to Patient (Per Discharging Provider) Take omeprazole once daily for 6 weeks to suppress stomach acid. Use sucralfate suspension 3-4 times a day on an empty stomach for 2 weeks to heal the esophagitis. Take ferrous sulfate iron supplement twice daily until further notice. All prescriptions have been sent to the [facility] Total Time Total Time Spent Total Time Spent (In Minutes): 45 minutes Coding Level of Care Code 39553 INP/OBS DISCH >30 MIN Diagnoses Upper GI bleed K92.2 Swelling of left knee joint M25.462 Iron deficiency E61.1
[2024-04-02 11:25] VITALS: BP 146/58; PULSE 53; RESP 16
== END 2024-04-02 13:24 | disposition home or self-care (01) | DRG 812 ==
LOC: ED 16:05 → 2S 18:33 → SUATTDRO 18:33 → 2S 20:14